=== PATIENT | female | born 1980 | race Caucasian/White ===

== ENCOUNTER 2016-09-30 13:40 | Emergency (ER) | payer BC ==
[~2016-09-30] VITALS: Ht 165.1 cm; Wt 85.5 kg
[~2016-09-30 13:40] MED LIST: EFFSR150 PO; HYDROCORTISONE; PROM25TA PO; RIZA10TA18 PO
[2016-09-30 14:00] VITALS: TEMP 36.8; Ht 165.1 cm; Wt 85.5 kg
[2016-09-30] MEDS ORDERED: ONDANSETRON INJ 2 MG/ML 2 ML VIAL IV STA (15:12)
[2016-09-30] MEDS ORDERED: SODIUM CHLORIDE 0.9% 1000ML 2,000 ML IV STA (15:12)
[2016-09-30] MEDS ORDERED: KETOROLAC TROMETHAMINE 30 MG/ML VIAL IV STA (15:12)
[2016-09-30 15:26] LABS: BASO % 0.1 %; BASO ABS # 0.01 K/uL (0-0.2); COMPLETE YES; HEMATOCRIT 44.9 % (37-47); IG% 0.1 %; LYMPH % 10.9 %; LYMPH ABS # 0.76 K/uL (1.2-3.4); MEAN CELL VOLUME 89.4 fL (80-100); MEAN CORPUSCULAR HEMOGLOBIN 30.7 pg (25-34); MEAN CORPUSCULAR HGB CONC 34.3 g/dl (32-36); MEAN PLATELET VOLUME 10.9 fL (7.4-10.4); MONO % 7.2 %; NEUT % 81.7 %; PLATELET COUNT 259 K/uL (130-400); RED BLOOD COUNT 5.02 M/uL (4.2-5.4); WHITE BLOOD COUNT 6.95 K/uL (4.8-10.8)
[2016-09-30 15:33] LABS: ALT/SGPT 19 U/L (12-78); BLOOD UREA NITROGEN 10 mg/dl (7-18); BUN/CREATININE RATIO 11.3 (10-20); CALCIUM 9.1 mg/dl (8.5-10.1); CARBON DIOXIDE 27 mmol/L (21-32); CHLORIDE 102 mmol/L (98-107); CREATININE 0.84 mg/dl (0.60-1.20); GLUCOSE 109 mg/dl (70-99); POTASSIUM 3.8 mmol/L (3.5-5.1); SODIUM 138 mmol/L (136-145)
[2016-09-30 15:36] LABS: ALKALINE PHOSPHATASE 64 U/L (45-117); AST/SGOT 16 U/L (15-37)
--- NOTE | 2016-09-30 15:55 | DIAGNOSTIC IMAGING REPORT ---
CT OF THE HEAD WITHOUT CONTRAST CLINICAL HISTORY: Headache. Fever. COMPARISON STUDY: No previous studies for comparison. CT DOSE: 537.48 mGy.cm TECHNIQUE: Helical axial images of the head were obtained without IV contrast. Automated exposure control was utilized for the study. FINDINGS: No acute intracranial hemorrhage, midline shift or mass effect is present. Brain volume is normal. Ventricular system is normal. Basilar cisterns are patent. Mart-white differentiation is maintained. There are no findings to suggest acute dural sinus thrombosis or acute territorial infarct. There is no calvarial fracture. There is minimal mucosal thickening of the ethmoid sinuses. Mastoid air cells are clear. IMPRESSION: 1. No acute intracranial findings. 2. Minimal ethmoid sinus mucosal thickening. Electronically signed by: Mark Black M.D. 09/30/2016 3:54 PM Dictated Date/Time: 09/30/2016 3:52 PM
[2016-09-30] MEDS ORDERED: AMOXICILLIN/CLAVULANATE TAB 875 MG TAB PO ONE (17:15)
[2016-09-30] MEDS ORDERED: AMOX875T PO (17:17)
[2016-09-30 17:36] VITALS: BP 148/95; PULSE 88; O2SAT 99
--- NOTE | 2016-09-30 19:50 | EMERGENCY ROOM VISIT NOTE ---
History Report prepared by Davi: Azeb Andino Under the Supervision of: Dr. Dirk Miranda D.O. First contact with patient: 14:54 Chief Complaint: VOMITING Stated Complaint: FAINTNESS,LIGHT HEADED,VOMITING,DEHYDRATED Nursing Triage Summary: pt reports having fever, congestion. ear pressure started monday went to pcp told has viral illness given antibiotics while in pcp office started feeling faint sent to ed for eval. has migraine, has hx of migraines. vomited x1 today History of Present Illness The patient is a 36 year old female who presents to the Emergency Room with complaints of a persistent fever since 4 days ago. The highest her fever bill was 100.3 degrees. She reports congestion, sinus pressure, headaches, dry cough , and body aches. She feels dizzy, weak, and close to losing consciousness at times. She began to vomit earlier today at 1100. She denies any vision changes, vaginal bleeding, or sore throat. She has a history of migraines and reports that the headache is similar to her migraines. She denies any sick contacts. Headache is in the middle of her head is consistent and unchanged in anyway from her typical migraines. She denies a stiff neck. She was seen by her primary care doctor today and prescribed Augmentin for a sinusitis. Source of History: patient Onset: 4 days ago Position: other (global) Quality: other (fever) Timing: other (persistent) Associated Symptoms: + cough (dry cough), + headache, + vomiting, + weakness , No sorethroat Note: Pt reports sinus pressure, congestion, body aches. Pt denies vision changes or vaginal bleeding. Review of Systems See HPI for pertinent positives & negatives. A total of 10 systems reviewed and were otherwise negative. Past Medical & Surgical Medical Problems: (1) Arthritis (2) Migraine Family History Patient reports no known family medical history. Social History Smoking Status: Never Smoker Marital Status: Occupation Status: employed Current/Historical Medications Scheduled Amoxicillin & Pot Clavulanate (Augmentin 875-125 mg), 1 TAB PO BID Rizatriptan Benzoate (Maxalt), 10 MG PO PRN Venlafaxine Hcl (Effexor Extended Rel), 150 MG PO QAM Allergies Coded Allergies: Gentamicin (Verified Allergy, Mild, OTHER, 05/09/12) Physical Exam Vital Signs Date Time Temp Pulse Resp B/P Pulse Ox O2 Delivery O2 Flow Rate FiO2 09/30/16 17:36 88 20 148/95 99 Room Air 09/30/16 16:15 97 18 135/97 100 Room Air 09/30/16 14:00 36.8 89 20 150/107 98 Room Air Physical Exam GENERAL: Laying flat in bed, alert, well appearing, well nourished, no distress , non-toxic EYE EXAM: normal conjunctiva, PERRL and EOM's grossly intact EARS: TMs clear bilaterally. HEAD: Tenderness to palpation of the frontal and maxillary sinuses. OROPHARYNX: no exudate, no erythema, lips, buccal mucosa, and tongue normal and mucous membranes are moist NECK: supple, no nuchal rigidity, no adenopathy, non-tender. Negative Brudzinski 's. LUNGS: Clear to auscultation. Normal chest wall mechanics HEART: no murmurs, S1 normal and S2 normal ABDOMEN: abdomen soft, non-tender, normo-active bowel sounds, no masses, no rebound or guarding. BACK: Back is symmetrical on inspection and there is no deformity, no midline tenderness, no CVA tenderness. SKIN: no rashes and no bruising UPPER EXTREMITIES: upper extremities are grossly normal. LOWER EXTREMITIES: No pitting edema. NEURO EXAM: Normal sensorium, cranial nerves II-XII intact, normal speech, no weakness of arms, no weakness of legs. No drift. Finger to nose intact. Gross sensation intact. Rapid alternating movements of extremities intact. Medical Decision & Procedures ER Provider Diagnostic Interpretation: Radiology results have been interpreted by the radiologist and reviewed by me. CT OF THE HEAD WITHOUT CONTRAST CLINICAL HISTORY: Headache. Fever. COMPARISON STUDY: No previous studies for comparison. CT DOSE: 537.48 mGy.cm TECHNIQUE: Helical axial images of the head were obtained without IV contrast. Automated exposure control was utilized for the study. FINDINGS: No acute intracranial hemorrhage, midline shift or mass effect is present. Brain volume is normal. Ventricular system is normal. Basilar cisterns are patent. Mart-white differentiation is maintained. There are no findings to suggest acute dural sinus thrombosis or acute territorial infarct. There is no calvarial fracture. There is minimal mucosal thickening of the ethmoid sinuses. Mastoid air cells are clear. IMPRESSION: 1. No acute intracranial findings. 2. Minimal ethmoid sinus mucosal thickening. Electronically signed by: Mark Black M.D. 09/30/2016 3:54 PM Dictated Date/Time: 09/30/2016 3:52 PM Laboratory Results 09/30/16 14:40 Red Blood Count 5.02, Mean Corpuscular Volume 89.4, Mean Corpuscular Hemoglobin 30.7, Mean Corpuscular Hemoglobin Concent 34.3, Mean Platelet Volume 10.9, Neutrophils (%) (Auto) 81.7, Lymphocytes (%) (Auto) 10.9, Monocytes (%) (Auto) 7.2, Eosinophils (%) (Auto) 0.0, Basophils (%) (Auto) 0.1, Neutrophils # (Auto) 5.67, Lymphocytes # (Auto) 0.76, Monocytes # (Auto) 0.50, Eosinophils # (Auto) 0.00, Basophils # (Auto) 0.01 09/30/16 14:40 Test 09/30/16 14:40 09/30/16 15:30 White Blood Count 6.95 K/uL (4.8-10.8) Red Blood Count 5.02 M/uL (4.2-5.4) Hemoglobin 15.4 g/dL (12.0-16.0) Hematocrit 44.9 % (37-47) Mean Corpuscular Volume 89.4 fL (80-100) Mean Corpuscular Hemoglobin 30.7 pg (25-34) Mean Corpuscular Hemoglobin Concent 34.3 g/dl (32-36) Platelet Count 259 K/uL (130-400) Mean Platelet Volume 10.9 fL (7.4-10.4) Neutrophils (%) (Auto) 81.7 % Lymphocytes (%) (Auto) 10.9 % Monocytes (%) (Auto) 7.2 % Eosinophils (%) (Auto) 0.0 % Basophils (%) (Auto) 0.1 % Neutrophils # (Auto) 5.67 K/uL (1.4-6.5) Lymphocytes # (Auto) 0.76 K/uL (1.2-3.4) Monocytes # (Auto) 0.50 K/uL (0.11-0.59) Eosinophils # (Auto) 0.00 K/uL (0-0.5) Basophils # (Auto) 0.01 K/uL (0-0.2) RDW Standard Deviation 42.0 fL (36.4-46.3) RDW Coefficient of Variation 12.9 % (11.5-14.5) Immature Granulocyte % (Auto) 0.1 % Immature Granulocyte # (Auto) 0.01 K/uL (0.00-0.02) Anion Gap 9.0 mmol/L (3-11) Est Creatinine Clear Calc Drug Dose 100.9 ml/min Estimated GFR () 104.4 Estimated GFR (Non- 90.0 BUN/Creatinine Ratio 11.3 (10-20) Calcium Level 9.1 mg/dl (8.5-10.1) Total Bilirubin 0.3 mg/dl (0.2-1) Direct Bilirubin < 0.1 mg/dl (0-0.2) Aspartate Amino Transf (AST/SGOT) 16 U/L (15-37) Alanine Aminotransferase (ALT/SGPT) 19 U/L (12-78) Alkaline Phosphatase 64 U/L (45-117) Total Protein 8.1 gm/dl (6.4-8.2) Albumin 4.4 gm/dl (3.4-5.0) Lipase 124 U/L (73-393) Influenza Type A Antigen Neg for Influ A (NEG) Influenza Type B Antigen POS for Influ B (NEG) Laboratory results per my review. Medications Administered Medications (Trade) Dose Ordered Sig/Glenda Route Start Time Stop Time Status Last Admin Dose Admin Sodium Chloride (Nss 1000ml) 2,000 ml @ 999 mls/hr Q2H1M STAT IV 09/30/16 15:12 09/30/16 17:12 DC 09/30/16 15:12 999 MLS/HR Ondansetron HCl (Zofran Inj) 4 mg NOW STAT IV 09/30/16 15:12 09/30/16 15:16 DC 09/30/16 15:37 4 MG Ketorolac Tromethamine (Toradol Inj) 30 mg NOW STAT IV 09/30/16 15:12 09/30/16 15:16 DC 09/30/16 15:37 30 MG Amoxicillin/ Clavulanate Potassium (Augmentin Tab) 875 mg ONE ONCE PO 09/30/16 17:15 09/30/16 17:16 DC 09/30/16 17:35 875 MG ECG Indication: vomiting Rate (beats per minute): 76 Rhythm: sinus rhythm Findings: no ectopy, other (normal axis) ED Course ED COURSE: Vital signs were reviewed and showed hypertension. The patients medical record was reviewed The above diagnostic studies were performed and reviewed. ED treatments and interventions as stated above. 1456: The patient was evaluated in room C3. A complete history and physical examination was performed. 1512: Toradol Inj 30 mg IV, Zofran Inj 4 mg IV, NSS 2000 ml @ 999 mls/hr IV. 1715: Augmentin Tab 875 mg PO. 1726: Upon reevaluation, the patient is feeling better.I discussed my findings with the patient and she understands and agrees with the treatment plan. Based on the patients age, coexisting illnesses, exam and lab findings the decision to treat as an outpatient was made. The patient remained stable while under my care. The patient appeared well at the time of discharge. Medical Decision Differential diagnosis: Etiologies such as viral syndrome, otitis, pharyngitis, pneumonia, influenza, meningitis, urinary tract infection, sepsis, bacteremia, as well as others were entertained. Patient is a 36-year-old female who presents the ER for diffuse myalgias associated with sinus congestion arthralgias and a headache. She was seen by PCP and placed on Augmentin for sinusitis. On my exam patient complaining neurologically intact. She was hypertensive upon presentation. Labs are remarkable for no significant leukocytosis or anemia. BMP along with LFTs, bilirubin and lipase were unremarkable. Influenza B was positive. She denied any cough. CT head did show thickening of the ethmoid sinuses. Based on this I recommended continuing the Augmentin. Her viral symptoms have been present for greater than 2 days and consequently no benefit of Tamiflu. Patient was given 2 L normal saline. She was given Toradol. She has significant improvement of her symptoms. She had resolution of her headache. With the influenza B and the sinusitis patient was discharged follow-up with her primary care doctor. There is no signs of meningitis or encephalitis on exam. Discussed with Pt concerning signs and symptoms to watch out for. Pt was instructed to follow up with their PCP and discussed with the patient their option to return to the ED at anytime for persistent or worsening symptoms. The appropriate anticipatory guidance and out-patient management, including indications for return to the emergency department, were explained at length to the patient and understood. Impression Primary Impression: Influenza B Additional Impression: Sinusitis Scribe Attestation The scribe's documentation has been prepared under my direction and personally reviewed by me in its entirety. I confirm that the note above accurately reflects all work, treatment, procedures, and medical decision making performed by me. Departure Information Dispostion Home / Self-Care Prescriptions Amoxicillin & Pot Clavulanate (Augmentin 875-125 mg) 1 Tab Tab 1 TAB PO BID, #14 TAB Prov: Dirk Miranda, DO 09/30/16 Referrals No Doctor, Assigned (PCP) Forms HOME CARE DOCUMENTATION FORM, IMPORTANT VISIT INFORMATION Patient Instructions ED Flu, ED Sinusitis Abx Tx, My [facility] Additional Instructions Please follow up with your primary care doctor with in the next 24 hours. Any worsening of your symptoms, please return to the ED immediately. Includes persistent fevers for the next 3 days greater than 100.4, weakness in your arms or legs, confusion, blurry vision, worsening headache, or any other concerning signs or symptoms from your standpoint. Problem Qualifiers Additional Impression: Sinusitis Sinusitis location: unspecified location Chronicity: unspecified Qualified Codes: J32.9 - Chronic sinusitis, unspecified
== END 2016-09-30 17:42 | disposition home or self-care (01) ==
LOC: C.EDB 13:41 → C.EDC 17:42
DX: J11.1 Influenza due to unidentified influenza virus with other respiratory manifestations (principal); J32.9 Chronic sinusitis, unspecified